=== PATIENT | male | born 1990 | race Caucasian/White ===

== ENCOUNTER 2016-11-30 11:28 | Inpatient (IN) | payer MEDICAID ==
[~2016-11-30] VITALS: Ht 172.7 cm; Wt 65.3 kg
[2016-11-30] MEDS ORDERED: INFLUENZA VIRUS VACCINE QVS 2017-18 (3YR+)/PF 60 MCG/0.5 ML SYRINGE IM ONE (17:00)
[2016-11-30] MEDS ORDERED: ACETAMINOPHEN 325 MG TABLET PO PRN (17:45)
[2016-11-30 17:50] VITALS: BP 123/78
[2016-11-30] MEDS: LORazepam 2 MG TABLET PO PRN (18:56)
[2016-11-30] MEDS: HALOPERIDOL 5 MG TABLET PO PRN (18:56)
[2016-11-30] MEDS: ZOLPIDEM TARTRATE 10 MG TABLET PO PRN (20:29)
[2016-11-30] MEDS ORDERED: CLOTRIMAZOLE 1% 15 GM CREAM TP PRN (21:15)
[2016-12-01 01:03] VITALS: BP 125/69
[2016-12-01] MEDS ORDERED: BENZOCAINE/MENTHOL LOZENGE MM PRN (07:45)
[2016-12-01] MEDS ORDERED: IBUPROFEN 600 MG TABLET PO PRN (07:45)
[2016-12-01] MEDS ORDERED: MAGNESIUM HYDROXIDE SUSPENSION 30 ML UDCUP PO PRN (07:45)
[2016-12-01] MEDS ORDERED: BACITRACIN 28.4 GM OINTMENT TP PRN (07:45)
[2016-12-01] MEDS ORDERED: LOPERAMIDE HCL 2 MG CAPSULE PO PRN (07:45)
[2016-12-01] MEDS ORDERED: ONDANSETRON HCL 4 MG TABLET PO PRN (07:45)
[2016-12-01] MEDS ORDERED: ALBUTEROL SULFATE HFA 90 MCG/PUFF 8 GM INHALER IH PRN (07:45)
[2016-12-01] MEDS ORDERED: PETROLATUM,WHITE 71 GM JELLY TP PRN (07:45)
[2016-12-01] MEDS ORDERED: MAG HYDROX/AL HYDROX/SIMETH ES 30 ML SUSPENSION UDCUP PO PRN (07:45)
[2016-12-01] MEDS ORDERED: CloNIDine HCL 0.1 MG TABLET PO PRN (07:45)
[2016-12-01 08:36] LABS: BASOPHILS % (AUTO) 0.4 % (0.0-2.0); EOSINOPHILS % (AUTO) 2.1 % (1.0-6.0); HEMATOCRIT 46.7 % (41-53); HEMOGLOBIN 15.5 g/dL (13.5-17.5); LYMPHOCYTES # (AUTO) 3.3 K/uL (1.0-4.8); LYMPHOCYTES % (AUTO) 50.2 % (22.0-44.0); MEAN CORPUSCULAR HEMOGLOBIN 30.8 pg (26.0-34.0); MEAN CORPUSCULAR HGB CONC 33.1 G/dL (31.0-37.0); MEAN CORPUSCULAR VOLUME 93 fL (80-100); MONOCYTES # (AUTO) 0.5 K/uL (0.1-1.0); MONOCYTES % (AUTO) 7.9 % (2.0-9.0); NEUTROPHILS # (AUTO) 2.6 K/uL (1.8-7.7); NEUTROPHILS % (AUTO) 39.4 % (40.0-70.0); PLATELET COUNT (AUTO) 208 K/uL (150-450); RED BLOOD CELL COUNT(AUTO) 5.03 MIL/uL (4.50-5.90); RED CELL DISTRIBUTION WIDTH 13.5 % (11.5-14.5); WHITE BLOOD COUNT (AUTO) 6.5 K/uL (4.5-11.0)
[2016-12-01 08:44] VITALS: BP 111/75
[2016-12-01 09:04] LABS: ALANINE AMINOTRANSFERASE 18 U/L (12-78); ALBUMIN 3.6 g/dL (3.4-5.0); ANION GAP 4 mmol/L (8-16); ASPARTATE AMINOTRANSFERASE 11 U/L (15-37); BILIRUBIN,TOTAL 0.2 mg/dL (0.1-1.0); CALCIUM, TOTAL 8.4 mg/dL (8.8-10.5); CARBON DIOXIDE 32 mmol/L (22-29); CHLORIDE 104 mmol/L (98-107); CHOL/HDL RATIO 3.4 (4.2-7.3); CREATININE 1.13 mg/dL (0.60-1.30); GLOMERULAR FILTR. RATE CALC > 60 mL/min (>60); POTASSIUM 4.1 mmol/L (3.5-5.1); SODIUM SERUM 140 mmol/L (136-145); THYROID STIMULATING HORMONE 1.46 uIU/mL (0.36-3.74); TOTAL PROTEIN, SERUM 6.5 g/dL (6.4-8.2); UREA NITROGEN, BLOOD 22 mg/dL (7-18)
[2016-12-01 11:34] LABS: HEMOGLOBIN A1C 5.8 % (4.5-6.2)
[2016-12-01] MEDS: LORazepam 2 MG TABLET PO PRN (12:12)
[2016-12-01] MEDS: HALOPERIDOL 5 MG TABLET PO PRN (12:12)
[2016-12-01 16:20] VITALS: BP 117/65
[2016-12-01] MEDS ORDERED: OLANZapine 5 MG TABLET PO SCH (21:00)
[2016-12-02 00:04] VITALS: BP 106/68
[2016-12-02 08:27] VITALS: BP 127/89
[2016-12-02] MEDS ORDERED: OLANZapine 5 MG TABLET PO ONE (10:30)
[2016-12-02] MEDS: HALOPERIDOL 5 MG TABLET PO PRN (12:46)
[2016-12-02 16:15] VITALS: BP 129/71
[2016-12-02] MEDS: OLANZapine 5 MG TABLET PO SCH (20:10)
[2016-12-03 00:15] VITALS: BP 110/72
[2016-12-03 08:20] VITALS: BP 115/67
[2016-12-03] MEDS: LORazepam 2 MG TABLET PO PRN ×3 (08:39→18:40)
[2016-12-03] MEDS: OLANZapine 5 MG TABLET PO SCH ×2 (08:39→20:11)
[2016-12-03] MEDS: HALOPERIDOL 5 MG TABLET PO PRN ×2 (08:42→16:02)
[2016-12-03 16:05] VITALS: BP 105/76
[2016-12-04 00:58] VITALS: BP 106/71
[2016-12-04] MEDS: OLANZapine 5 MG TABLET PO SCH ×2 (09:23→20:06)
[2016-12-04] MEDS: LORazepam 2 MG TABLET PO PRN ×2 (11:15→17:12)
[2016-12-04] MEDS: HALOPERIDOL 5 MG TABLET PO PRN ×2 (12:14→17:09)
[2016-12-04] MEDS: ACETAMINOPHEN 325 MG TABLET PO PRN (12:15)
[2016-12-04] MEDS ORDERED: LORazepam 2 MG/ML VIAL ONE (13:10)
[2016-12-04] MEDS ORDERED: DiphenhydrAMINE HCL 50 MG/ML VIAL ONE (13:10)
[2016-12-04] MEDS ORDERED: DiphenhydrAMINE HCL 50 MG/ML VIAL IM ONE (13:15)
[2016-12-04] MEDS ORDERED: LORazepam 2 MG/ML VIAL IM ONE (13:15)
[2016-12-04] MEDS ORDERED: HALOPERIDOL LACTATE 5 MG/ML VIAL IM ONE (13:15)
[2016-12-04 16:30] VITALS: BP 132/85
[2016-12-04] MEDS: ZOLPIDEM TARTRATE 10 MG TABLET PO PRN (20:06)
[2016-12-05 00:12] VITALS: BP 100/70
[2016-12-05] MEDS: LORazepam 2 MG TABLET PO PRN ×3 (08:57→20:03)
[2016-12-05] MEDS: OLANZapine 5 MG TABLET PO SCH (08:57)
[2016-12-05 08:58] VITALS: BP 113/73
[2016-12-05] MEDS: CLOTRIMAZOLE 1% 15 GM CREAM TP SCH ×2 (08:58→16:04)
[2016-12-05] MEDS: ACETAMINOPHEN 325 MG TABLET PO PRN ×2 (08:58→13:24)
[2016-12-05] MEDS ORDERED: OLANZapine 5 MG TABLET PO SCH (09:00)
[2016-12-05] MEDS: HALOPERIDOL 5 MG TABLET PO PRN ×3 (09:18→20:03)
[2016-12-05 13:24] VITALS: BP 118/75
[2016-12-05 16:37] VITALS: BP 132/68
[2016-12-05] MEDS: OLANZapine 10 MG TABLET PO SCH (20:03)
[2016-12-06 00:46] VITALS: BP 108/60
[2016-12-06] MEDS: OLANZapine 10 MG TABLET PO SCH (08:42)
[2016-12-06] MEDS: CLOTRIMAZOLE 1% 15 GM CREAM TP SCH (08:43)
[2016-12-06 09:42] VITALS: BP 123/66
[2016-12-06] MEDS ORDERED: OLAN10TA3 PO (13:40)
== END 2016-12-06 14:30 | disposition home or self-care (01) | DRG 750 ==
LOC: B2S 16:41
DX: F20.0 Paranoid schizophrenia (principal); R45.851 Suicidal ideations; E83.51 Hypocalcemia; F10.10 Alcohol abuse, uncomplicated; F17.200 Nicotine dependence, unspecified, uncomplicated; B35.3 Tinea pedis; G47.00 Insomnia, unspecified; F12.90 Cannabis use, unspecified, uncomplicated; Z91.5 Personal history of self-harm; Z59.0 Homelessness; Z71.41 Alcohol abuse counseling and surveillance of alcoholic; Z71.51 Drug abuse counseling and surveillance of drug abuser; Z71.6 Tobacco abuse counseling; Z28.21 Immunization not carried out because of patient refusal
CPT/HCPCS: 83036; 84443; 84520; J1200; J1630; J2060